=== PATIENT | female | born 1975 ===

== ENCOUNTER → 2017-10-16 | Outpatient (REF) | payer OTHER | LOC: ZZSENDIN 12:00 | PROVIDERS: ATTEND Specialist | DX: C53.9 Malignant neoplasm of cervix uteri, unspecified (principal) | CPT/HCPCS: 88104; 88305 ==

== ENCOUNTER → 2017-10-18 | Outpatient (REF) | payer OTHER | LOC: ZZSENDIN 12:00 | PROVIDERS: ATTEND Family Medicine Adult Medicine | DX: C67.9 Malignant neoplasm of bladder, unspecified (principal) | CPT/HCPCS: 88108; 88305 ==